=== PATIENT | male | born 1990 | race Asian ===

== ENCOUNTER 2017-05-10 17:47 | Emergency (ER) | payer OTHER ==
[~2017-05-10] VITALS: Ht 188 cm; Wt 66.1 kg
[2017-05-10 17:53] VITALS: TEMP 36.8; Ht 188 cm; Wt 66.1 kg
[2017-05-10] MEDS ORDERED: CEPH500C PO (18:22)
--- NOTE | 2017-05-10 18:25 | EMERGENCY ROOM VISIT NOTE ---
ED Visit Note First contact with patient: 18:01 CHIEF COMPLAINT: Facial laceration HISTORY OF PRESENT ILLNESS: This 26-year-old male patient presents emergency department proximally one hour after receiving a laceration to the right upper lip while playing basketball. The patient states she was playing, when he hit his head against another player's head and experienced the facial laceration. The patient states he believes he hit the other player's tooth, which is what caused the laceration. He denies laceration inside the lip, however states he does feel that there was some minimal bleeding in the lip. There was no loss of consciousness, vomiting, or unusual behavior afterwards. Denies neck pain. No headache, nausea, or blurred vision. There is minimal active bleeding. The patient rates the pain as minimal and 0/10. The patient's tetanus shot is not up to date. REVIEW OF SYSTEMS: A 6 system review of systems was completed with positives and pertinent negatives listed in the HPI. ALLERGIES: None MEDICATIONS: None PMH: None SOCIAL HISTORY: The patient lives locally with his family. He denies drug, alcohol, tobacco use. PHYSICAL EXAM: Vital Signs: Reviewed Nurse's notes, vital signs stable. GENERAL : 26-year-old male, in no acute distress, well-developed, well-nourished. NEURO : The patient is alert and oriented to person place and time. No focal neurological defects. EYES: Pupils are round, equal, and react to light. EOMI. EARS: No hemotympanum. NECK: Supple. No cervical spine tenderness. FACE: No facial bone tenderness or mandibular tenderness. The mouth can open fully. The teeth are well aligned. No loose or chipped teeth. SKIN: There is a 1.5 cm laceration of the right upper lip, through the vermilion border. The edges gape apart with and without traction. There is minimal active bleeding and no foreign material in the wound. There are no deep structures present. The wound does not appear to extend through the entire lip. There is a separate , small puncture wound located on the anterior border of the right upper lip. Bleeding of this wound is controlled. Capillary refill less than two seconds. Normal sensation to light and sharp touch. EMERGENCY DEPARTMENT COURSE: I examined the patient. Verbal consent was obtained to perform the procedure. Using sterile technique the wound was cleansed with Betadine. The area was sterilely draped. 2 ml of 1% buffered lidocaine was used to anesthetize the laceration on the face. Once the patient was anesthetized, the wound was copiously irrigated under pressure with sterile saline. The wound was explored and was as described above. The laceration was repaired using 6 simple interrupted 6-0 nylon sutures with the wound edges being well approximated. The patient tolerated the procedure well. Hemostasis was achieved. The area was cleaned with sterile saline and dressed with bacitracin ointment. The patient was given Tdap immunization. The patient was discharged home in good condition. DIFFERENTIAL DIAGNOSIS: Facial contusion, concussion, intracranial hemorrhage, and others. DIAGNOSIS: Facial laceration DISCHARGE INSTRUCTIONS: You have received 6 sutures on your upper lip. These sutures are NOT dissolvable and WILL need to be removed by a health care provider in 4-5 days. You can return to the Emergency Department or contact your Primary Care Provider to have the sutures removed. Cephalexin(Keflex) 500mg: Take one pill four times daily for 10 days for your skin infection. All antibiotics can cause diarrhea. If this occurs and you feel worse or it does not resolve in 1-2 days follow up with your doctor or return to the Emergency Department as this could be signs of serious underlying problems. Any medication can cause an allergic reaction, stop the pills immediately and return to the ER for rash, hives, breathing difficulties, or swelling. Proper wound care is essential for adequate wound healing and infection prevention. You can shower and clean the wound with soap and water. Do not scour over the wound, pat dry with a towel. Do not submerse the wound (i.e. bathe or dish wash) until the sutures have been removed. You can use an antibiotic ointment with a dressing over the wound for the next 3-4 days. After this time you may leave the wound dry and open to the air. If crust develops over the wound you can use a Q-tip to apply a 1:1 peroxide:water solution to clean the wound. Look for signs of infection of the wound including: increased pain, swelling, foul discharge, streaking, or increased temperature. If any of these are noticed you should return to the Emergency Department for further assessment and treatment. As with any laceration you may have received nerve damage to the surrounding tissues. This damage may or may not be permanent. You should keep the area covered with sunscreen for the first 6 months to 1 year when at risk for exposure to help minimize scarring. You can also use scar reducing creams or Vitamin E oil to help minimize scarring. For pain control, you can use the following [id number] medicines (if >12 yo): - Regular strength (325mg/tab) Tylenol (acetaminophen) 2 tabs every 4-6 hours as needed. Do not exceed 12 tablets in a 24 hour period. Avoid taking more than 4 grams (4000 mg) of Tylenol per day. This includes any other sources of acetaminophen you may take on a regular basis. - Regular strength (200 mg/tab) Advil (ibuprofen) 1-2 tabs every 4-6 hours as needed. Do not exceed a dose of 3200 mg per day. Return to the emergency department if your symptoms worsen despite treatment course outlined above. Current/Historical Medications Scheduled Cephalexin Monohydrate (Keflex), 500 MG PO QID Allergies Coded Allergies: No Known Allergies (Unverified , 05/10/17) Vital Signs Date Time Temp Pulse Resp B/P (MAP) Pulse Ox O2 Delivery O2 Flow Rate FiO2 05/10/17 17:53 36.8 81 18 109/59 94 Room Air Medications Administered Medications (Trade) Dose Ordered Sig/Iban Route Start Time Stop Time Status Last Admin Dose Admin Diphtheria/ Pertussis/Tetanus Vacc (Adacel Inj) 0.5 ml ONCE ONCE IM. 05/10/17 18:30 05/10/17 18:31 DC 05/10/17 18:27 0.5 ML Departure Information Impression Primary Impression: Laceration of lip Dispostion Home / Self-Care Condition GOOD Prescriptions Cephalexin Monohydrate (Keflex) 500 Mg Cap 500 MG PO QID for 10 Days, #40 CAP Prov: Su Alvarenga PA-C 05/10/17 Referrals No Doctor, Assigned (PCP) Patient Instructions ED Laceration Mouth, My [facility] Additional Instructions You have received 6 sutures on your upper lip. These sutures are NOT dissolvable and WILL need to be removed by a health care provider in 4-5 days. You can return to the Emergency Department or contact your Primary Care Provider to have the sutures removed. Cephalexin(Keflex) 500mg: Take one pill four times daily for 10 days for your skin infection. All antibiotics can cause diarrhea. If this occurs and you feel worse or it does not resolve in 1-2 days follow up with your doctor or return to the Emergency Department as this could be signs of serious underlying problems. Any medication can cause an allergic reaction, stop the pills immediately and return to the ER for rash, hives, breathing difficulties, or swelling. Proper wound care is essential for adequate wound healing and infection prevention. You can shower and clean the wound with soap and water. Do not scour over the wound, pat dry with a towel. Do not submerse the wound (i.e. bathe or dish wash) until the sutures have been removed. You can use an antibiotic ointment with a dressing over the wound for the next 3-4 days. After this time you may leave the wound dry and open to the air. If crust develops over the wound you can use a Q-tip to apply a 1:1 peroxide:water solution to clean the wound. Look for signs of infection of the wound including: increased pain, swelling, foul discharge, streaking, or increased temperature. If any of these are noticed you should return to the Emergency Department for further assessment and treatment. As with any laceration you may have received nerve damage to the surrounding tissues. This damage may or may not be permanent. You should keep the area covered with sunscreen for the first 6 months to 1 year when at risk for exposure to help minimize scarring. You can also use scar reducing creams or Vitamin E oil to help minimize scarring. For pain control, you can use the following [id number] medicines (if >12 yo): - Regular strength (325mg/tab) Tylenol (acetaminophen) 2 tabs every 4-6 hours as needed. Do not exceed 12 tablets in a 24 hour period. Avoid taking more than 4 grams (4000 mg) of Tylenol per day. This includes any other sources of acetaminophen you may take on a regular basis. - Regular strength (200 mg/tab) Advil (ibuprofen) 1-2 tabs every 4-6 hours as needed. Do not exceed a dose of 3200 mg per day. Return to the emergency department if your symptoms worsen despite treatment course outlined above. Problem Qualifiers Primary Impression: Laceration of lip Encounter type: initial encounter Qualified Codes: S01.511A - Laceration without foreign body of lip, initial encounter
[2017-05-10] MEDS ORDERED: XYLOCAINE 1%/SOD BICARB 20 ML VIAL INFIL ONE (18:30)
[2017-05-10] MEDS ORDERED: DIPHTHERIA/TETANUS/PERTUSSIS 0.5 ML SYR/VIAL IM. ONE (18:30)
[2017-05-10 19:00] VITALS: BP 101/77; PULSE 73; O2SAT 97
== END 2017-05-10 19:13 | disposition home or self-care (01) ==
LOC: C.EDB 17:51 → C.EDD 19:13
DX: S01.511A Laceration without foreign body of lip, initial encounter (principal); W51.XXXA Accidental striking against or bumped into by another person, initial encounter; Y93.67 Activity, basketball; Y99.8 Other external cause status; Z23 Encounter for immunization